=== PATIENT | female | born 1950 | race Caucasian/White ===

== ENCOUNTER 2018-03-01 10:33 | Emergency (ER) | payer MEDICARE ==
[~2018-03-01] VITALS: Ht 167.6 cm; Wt 84.5 kg
[2018-03-01] MEDS ORDERED: LEVO125T PO (11:13)
[2018-03-01] MEDS ORDERED: ZOLP5TAB PO (11:20)
[2018-03-01] MEDS ORDERED: LISINOPRIL (11:20)
[2018-03-01] MEDS ORDERED: GABAPENTIN (11:20)
[2018-03-01] MEDS ORDERED: METOPROLOL (11:20)
[2018-03-01] MEDS ORDERED: AMBIEN (11:20)
[2018-03-01] MEDS ORDERED: SUCRALFATE (11:20)
[2018-03-01] MEDS ORDERED: TOPROL (11:20)
[2018-03-01] MEDS ORDERED: SODIUM CHLORIDE 0.9% 1,000ML IVBOLUS ONE (11:30)
[2018-03-01] MEDS ORDERED: SODIUM CHLORIDE FLUSH 10ML SYR IVF ONE (11:30)
[2018-03-01] MEDS: SODIUM CHLORIDE 0.9% 1,000 ML IV ONE ×2 (11:41→13:21)
[2018-03-01 11:54] LABS: BASOPHILS # (AUTO) 0.02 x10^3/uL (0-0.1); BASOPHILS % (AUTO) 0 % (0-1); EOSINOPHILS # (AUTO) 0.09 x10^3/uL (0-0.4); EOSINOPHILS % (AUTO) 1 % (1-7); LYMPHOCYTES # (AUTO) 1.16 x10^3/uL (1-3.4); LYMPHOCYTES % (AUTO) 18 % (22-44); MD NO; MEAN CORPUSCULAR HEMOGLOBIN 31.4 pg (27.0-34.8); MEAN CORPUSCULAR HGB CONC 34.3 g/dL (32.4-35.8); MEAN CORPUSCULAR VOLUME 91.4 fL (80-100); MEAN PLATELET VOLUME 8.6 fL (7.4-10.4); MONOCYTES # (AUTO) 0.61 x10^3/uL (0.2-0.8); MONOCYTES % (AUTO) 9 % (2-9); NEUTROPHILS # (AUTO) 4.73 x10^3/uL (1.8-6.8); NEUTROPHILS % (AUTO) 72 % (42-75); PH, VENOUS 7.351 pH (7.320-7.420); PLATELET COUNT 238 x10^3/uL (130-400); RED BLOOD COUNT 3.52 x10^6/uL (3.82-5.3); RED CELL DISTRIBUTION WIDTH 13.1 % (9.6-15.2)
[2018-03-01 11:59] LABS: FIO2 ROOM AIR %
[2018-03-01 12:02] LABS: ALANINE AMINOTRANSFERASE 22 U/L (12-78); ALBUMIN 3.8 g/dL (3.4-5.0); ANION GAP 11 mmol/L (5-15); CALCIUM 9.7 mg/dL (8.5-10.1); CHLORIDE 102 mmol/L (98-107); CREATININE 1.94 mg/dL (0.55-1.02)
[2018-03-01 12:05] LABS: ALKALINE PHOSPHATASE 133 U/L (45-117); BILIRUBIN,TOTAL 0.3 mg/dL (0.2-1.0); TOTAL PROTEIN 8.4 g/dL (6.4-8.2)
[2018-03-01 12:40] LABS: ACETONE, SERUM Negative (Negative)
[2018-03-01] MEDS ORDERED: HYDROcodone/APAP 5/325 TABLET PO ONE (13:00)
[2018-03-01] MEDS ORDERED: INSULIN REGULAR 100 UNITS/ML, 3ML VIAL SQ-INSULIN ONE (13:00)
[2018-03-01] MEDS ORDERED: HYDROcodone/APAP 5/325 TABLET ONE (13:06)
[2018-03-01] MEDS ORDERED: INSULIN REGULAR 100 UNITS/ML, 3ML VIAL ONE (13:07)
[2018-03-01] MEDS ORDERED: ONDANSETRON ODT 4 MG ONE (13:49)
[2018-03-01] MEDS ORDERED: HYDROmorphone 2 MG/ML, 1ML ONE (13:50)
[2018-03-01] MEDS ORDERED: HYDROmorphone 2 MG/ML, 1ML IVPush PRN (14:00)
[2018-03-01] MEDS ORDERED: ONDANSETRON ODT 4 MG PO ONE (14:00)
[2018-03-01 15:57] VITALS: BP 147/59
== END 2018-03-01 16:30 | disposition home or self-care (01) ==
LOC: ED 15:55
DX: E10.65 Type 1 diabetes mellitus with hyperglycemia (principal); B02.9 Zoster without complications; B02.29 Other postherpetic nervous system involvement; I10 Essential (primary) hypertension; E03.9 Hypothyroidism, unspecified
CPT/HCPCS: 36415; 80053; 82010; 82803; 82962; 85025; 96361; 96372; 96374; 99285; J1170; J7030; Q0162